=== PATIENT | female | born 1950 | race Caucasian/White ===

== ENCOUNTER 2021-12-06 10:38 | Emergency (ER) | payer BC, OTHER ==
[~2021-12-06] VITALS: Ht 162.6 cm; Wt 110.7 kg
--- NOTE | ~2021-12-06 | EMS ---
[address] [address] EMS Patient Care Report Name: ALBA WOLFF Room #: PRE M.R.#: [id number] Admission: Attend Phys: Discharge: Date of : 50 Report #: [id number] THIS REPORT FOR: //name// Report Transmitted: 12/06/2021 10:09 EMS Care Summary [place], [place]/[facility] Incident [id number] @ 12/06/2021 09:47 Incident Location [address] [place] [address] Patient ALBA WOLFF Female, 71 Years 1950 Patient Address [address] [place] [id number] Patient History Diabetes,Hypertension (HTN),Morbid Obesity,Cardiac - Stent,Atrial Fibrillation, Patient Allergies No known allergies, Patient Medications Eliquis, Glimepiride, Aspirin, Insulin, Chief Complaint hypoglycemia Disposition Transported No Lights/[place] Reason Falls Transported To [facility] Narrative Arrived to find pt laying on side on carpeted floor of [facility] EMS Billing Office, surrounded by multiple [facility] [employer] Healthcare Management Consultant Chiefs. Bystanders stated they heard a soft thud and found pt laying on ground by her desk. Report by PM Chief Vipin stated pt bgl was 42 so she administered oral glucose. Pt was speaking and slightly shaking upon 552 arrival. Pt stated she did not want to go to the [address] [address] EMS Patient Care Report Name: ALBA WOLFF Room #: PRE [facility].R.#: [id number] Admission: Attend Phys: Discharge: Date of : 50 Report #: [id number] hospital. Pt stated she did not fall, did not hit her head, and did not lose consciousness. Pt denies neck or back pain. Pt does take a blood thinner. Pt stated she would only go to the hospital if she could go to [facility]. Pt placed on cot and secured to cot with cot straps. Pt placed in surgical mask. Pt placed in back of unit. Pt bgl was reassessed with a fingerstick, which was 30. Pt appeared slightly slow to answer some questions. Pt administered D-10 which made the pt more alert and pt was able to answer all questions quickly and appropriately. Pt stated she took her insulin last night and took her metformin this morning but only ate one cookie today. Pt again denied neck or back pain and again stated she only wanted to go to [facility]. Pt tremors subsided. Pt transported without incident. Care to RN, rm 7. Initial Vitals @10:07P: 94,BP: 109/71,Glucose: 30,CO: 2,SpO2: 95, @10:11P: 87,BP: 112/63,CO: 3,SpO2: 93, @10:09P: 71,CO: 5, @PTAP: 91,BP: 144/90,Glucose: 42, @10:21P: 76,R: 16,Pain: 0/10,GCS: 15,Glucose: 180,CO: 2,SpO2: 95, Assessments @09:58MENTAL:Place Oriented,Event Oriented,Time Oriented,Person Oriented,SKIN:HEENT:Head/Face: No Abnormalities,Eyes: No Abnormalities,Neck/Airway: No Abnormalities,LUNG SOUNDS:Left Upper: No Abnormalities,Right Upper: No Abnormalities,Left Lower: No Abnormalities,Right Lower: No Abnormalities,ABDOMEN:Left Upper: No Abnormalities,Right Upper: No Abnormalities,Left Lower: No Abnormalities,Right Lower: No Abnormalities,PELVIS//GI:EXTREMITIES:Right Arm: Other,Left Arm: Other,Left Leg: No Abnormalities,Right Leg: No Abnormalities,PULSE:NEURO:Tremors,@10:30MENTAL:Event Oriented,Place Oriented,Person Oriented,Time Oriented,SKIN:HEENT:LUNG SOUNDS:ABDOMEN:PELVIS//GI:EXTREMITIES:PULSE:NEURO: Impression Diabetic Hypoglycemia Procedures @09:56 ALS Assessment Response: UnchangedSucceeded @10:09 IV Therapy - Saline Lock 10cc (22 ga) Site: Hand-Left Response: UnchangedSucceeded @PTAOral Glucose - 32 Grams (gms) - Oral Response: Unchanged @10:11 Dextrose 10% - 125 Milliliters (ml) - Intravenous (IV) Response: Improved @09:59 3-Lead ECG Response: UnchangedSucceeded Timeline [employer] SERVICES SPECIALIST,Oral Glucose - 32 Grams (gms) - Oral,Response: Unchanged [address] [address] EMS Patient Care Report Name: ALBA WOLFF Room #: PRE GWEN M.RPolly#: [id number] Admission: Attend Phys: Discharge: Date of : 50 Report #: [id number] V[employer] SERVICES SPECIALIST,BP: 144/90 M,PULSE: 91,RR: R,SPO2: Ox,ETCO2: ,B,PAIN: ,GCS: , 09:44,Call Received 09:44,Dispatch Notified 09:47,Dispatched 09:47,En Route 09:54,On Scene 09:55,At Patient 09:56,ALS Assessment,Response: UnchangedSucceeded, 09:59,3-Lead ECG,Response: UnchangedSucceeded, 10:07,BP: 109/71 M,PULSE: 94,RR: R,SPO2: 95 Ox,ETCO2: ,B,PAIN: ,GCS: , 10:09,IV Therapy - Saline Lock 10cc 22 ga Site: Hand-Left,Response: UnchangedSucceeded, 10:09,BP: / M,PULSE: 71,RR: R,SPO2: Ox,ETCO2: ,BG: ,PAIN: ,GCS: , 10:11,BP: 112/63 M,PULSE: 87,RR: R,SPO2: 93 Ox,ETCO2: ,BG: ,PAIN: ,GCS: , 10:11,Dextrose 10% - 125 Milliliters (ml) - Intravenous (IV),Response: Improved 10:20,Depart Scene 10:21,BP: / M,PULSE: 76,RR: 16 R,SPO2: 95 Ox,ETCO2: ,B,PAIN: 0,GCS: 15, 10:35,At Destination 10:48,Call Closed Disclaimer [email or web address] Copyright 2021 [employer] This EMS Care Summary contains data elements from the applicable legal record (which may be displayed differently). It is designed to provide pertinent information for the following purposes: continuity of care, clinical quality, and state data reporting. The complete legal record is available to ED staff and administrators of the receiving hospital in [employer]'s Patient Tracker. All data is provided "as is."
[2021-12-06 11:05] LABS: ABSOLUTE NEUTROPHILS 3.3 thou/uL (1.4-8.2); BASOPHILS 1.8 % (0.0-2.0); EOSINOPHILS 2.1 % (0.0-3.0); HEMATOCRIT 33.9 % (37.0-47.0); HEMOGLOBIN 10.7 gm/dL (12.0-15.0); LYMPHOCYTES 18.8 % (24.0-44.0); MCH 25.8 pg (26.0-34.0); MCHC 31.5 g/dL (28.0-37.0); MCV 81.9 fL (80.0-100.0); MONOCYTES 7.3 % (1.0-8.0); PLATELET COUNT 261 thou/uL (150-400); RBC 4.14 mil/uL (4.20-5.00); RDW 19.8 % (10.5-14.5); WBC 4.8 thou/uL (4.0-11.0)
[2021-12-06 11:14] LABS: CALCIUM 9.1 mg/dL (8.5-10.1); CREATININE 1.8 mg/dL (0.6-1.0); POTASSIUM 4.6 mmol/L (3.5-5.1)
[2021-12-06 12:57] VITALS: BP 158/85
== END 2021-12-06 12:58 | disposition home or self-care (01) ==
LOC: ER 10:38
PROVIDERS: Emergency Medicine
DX: E16.2 Hypoglycemia, unspecified (principal); R55 Syncope and collapse; E11.9 Type 2 diabetes mellitus without complications